=== PATIENT | female | born 2000 | race Two or more races ===

== ENCOUNTER → 2018-11-17 | Day surgery (SDC) | payer OTHER ==
[~2018-11-17] MED LIST: BUPIVACAINE-EPI 0.25%-1:200000 MPF 30 ML VIAL. ONE; LIDOCAINE 1%/EPI 1:100,000 20 ML VIAL. ONE
[2018-11-17 10:24] VITALS: BP 111/63
--- NOTE | 2018-11-17 11:04 | PDOC4 ---
Operative Report DATE 11/17/2018 Preop Diagnosis Left neck Post-op Diagnosis Same Operation Performed Excision of left neck mass: 18-year-old female with a small subcutaneous neck mass left side procedure of excision was explained to the patient in detail risk benefits were also discussed including bleeding infection alternatives to this procedure also discussed with patient who seemed to understand and gave both verbal and written consent had procedure performed. Patient was taken to the miners room placed in the right lateral decubitus position her neck was prepped and draped usual sterile fashion using ChloraPrep and area over the mass was injected with quarter percent Marcaine with epinephrine incision was made with 15 blade scalpel the mass was excised sharply with Metzenbaum scissors several pathology wound was then closed in a single layer 40 septic or Monocryl Mastisol Steri-Strips and island dressing were applied. Patient heart as well as discharged home in stable condition. Surgeon Cameron ANESTHESIA PROPOSED: LOCAL Blood Loss 5 mL Specimen Left neck mass Complications None AMADO JENKINS MD Nov 17, 2018 11:04
--- NOTE | 2018-11-18 14:07 | PATHOLOGY ---
[facility] Accession Number: [id number] . 01 Material submitted: . neck - LEFT NECK MASS. Modifiers: left . 01 Clinical history: . Neck mass . 02 Diagnosis: Soft tissue "left neck mass": - Consistent with a neurofibroma. There is no evidence of atypia or malignancy. (SHA:[facility] 11/18/2018) QTP/11/18/2018 . 02 Comment: This case is also reviewed by Dr. Sanjana Monsalve. . 02 Electronically signed: . Jose Moran MD, Pathologist NPI- [id number] . 01 Gross description: . Received in formalin labeled "Meghan Murphy, neck mass left," is a single segment of braun soft tissue measuring 0.6 x 0.5 x 0.5 cm in maximum dimension. The specimen is bisected and entirely submitted in cassette A1. ([facility]SD; 11/17/2018) TOB/TOB . 02 Pathologist provided ICD-10: D36.11 . 02 CPT . 470563 Specimen Comment: A courtesy copy of this report has been sent to Specimen Comment: [phone]. Specimen Comment: Report sent to Performed at: 01 [facility] [address], [place] [id number] MD Eddie Langston MD Phone: [phone] Performed at: 02 [facility] [place] [address] [place], [place] [id number] MD Chuck Hubbard MD Phone: [phone]
== END | disposition home or self-care (01) ==
LOC: SURG 10:16
PROVIDERS: ATTEND Surgery
DX: D36.11 Benign neoplasm of peripheral nerves and autonomic nervous system of face, head, and neck (principal); I95.9 Hypotension, unspecified; Z79.899 Other long term (current) drug therapy; Z98.890 Other specified postprocedural states
CPT/HCPCS: 21555; 88305; J3490; 11442